=== PATIENT | female | born 1990 | race Caucasian/White ===

== ENCOUNTER 2022-05-11 15:07 | Emergency (ER) | payer OTHER, SELFPAY ==
[2022-05-11] VITALS (11 sets, daily range): BP systolic 102–119; BP diastolic 74–92; PULSE 63–82; RESP 11–20; TEMP 36.5; O2SAT 96–100
--- NOTE | ~2022-05-11 | CT_ITS ---
EXAMINATION: CT abdomen pelvis w con DATE: 05/11/2022 18:58 INDICATION: Epigastric abdominal pain and nausea TECHNIQUE: Computed tomography (CT) of the abdomen and pelvis was performed with 100 cc Omnipaque 300 intravenous contrast. The dose-length product was 240.85 mGy-cm. Automated exposure control and iter ative reconstruction technique were employed. COMPARISON: None. FINDINGS: Lung bases are unremarkable. Heart size normal. No significant pleural or pericardial effus ion. Small subcentimeter hypodensity right hepatic lobe, most likely benign cysts. The spleen, pancre as, adrenal glands and kidneys are unremarkable. Gallbladder is present. Stomach is unremarkable. Non obstructive bowel gas pattern. There are multiple fat-containing masses in the pelvis. There are at l east 6 separate masses, largest centered to the right measuring 6.2 x 4.7 cm greatest axial dimension . These contain macroscopic fat, consistent with teratoma/dermoids. There is mild mass effect on the adjacent colon. No acute osseous abnormality. IMPRESSION: 1. No acute abdominal abnormality. 2: Multiple masses of the pelvis bilaterally containing macroscopic fat, consistent with multiple te ratomas/dermoids. Recommend surgical consultation. Reviewed, dictated and finalized at location A. IMPRESSION: 1. No acute abdominal abnormality. 2: Multiple masses of the pelvis bilaterally containing macroscopic fat, consi stent with multiple teratomas/dermoids. Recommend surgical consultation.
[2022-05-11 16:54] LABS: Basophils Percent Auto 0.3 % (0.2-1.2); Eosinophils Percent Auto 0.4 % (0-4.4); Hematocrit 43.8 % (37.0-47.0); Hemoglobin 14.4 g/dL (12.0-15.0); Immature Granulocyte Absolute 0.03 K/mm3 (0.00-0.031); Immature Granulocyte Percent A 0.4 % (0-0.5); Lymphocytes Absolute Auto 1.08 K/mm3 (0.9-3.2); Lymphocytes Percent Auto 14.9 % (18.3-44.2); Mean Corpuscular HGB Conc 32.9 g/dl (32-36); Mean Corpuscular Hemoglobin 31.8 pg (26-34); Mean Corpuscular Volume 96.7 fl (80-100); Mean Platelet Volume 9.7 fl (7.4-10.4); Monocytes Absolute Auto 0.4 K/mm3 (0.1-0.6); Monocytes Percent Auto 5.8 % (2.6-8.5); Neutrophils Absolute Auto 5.7 K/mm3 (1.3-6.7); Neutrophils Percent Auto 78.2 % (45.5-73.1); Platelet Count Result 177 k/mm3 (150-375); Red Blood Count 4.53 M/mm3 (4.2-5.4); Red Cell Distribution Width 11.8 % (11.5-14.5); White Blood Count 7.3 K/mm3 (4.5-10.0)
[2022-05-11 16:57] LABS: Add Urine Microscopic? YES; Appearance Urine Slightly Cloudy (Clear); Bilirubin Urine Negative (Negative); Blood Urine 3+ (Negative); Color Urine Red (Yellow); Glucose Urine UA Negative (Negative); Ketones Urine Negative (Negative); Leukocyte Esterase Ur Trace LEU/UL (Negative); Nitrate Urine Negative (Negative); Protein Urine 1+ mg/dL (Negative); Urobilinogen Urine 0.2 mg/dL (<2.0); pH Urine 8.5 (5.0-9.0)
[2022-05-11 17:02] LABS: Alanine Aminotransferase 10 U/L (6-35); Albumin Level 4.6 g/dL (3.5-5.1); Alkaline Phosphatase 70 U/L (38-126); Anion Gap 6 mmol/L (8-16); Aspartate Amino Transferase 18 U/L (14-36); Bilirubin,Total 1.3 mg/dL (0.2-1.3); Blood Urea Nitrogen 8 mg/dL (7-17); Calcium 8.8 mg/dL (8.4-10.2); Carbon Dioxide 28 mmol/L (22-30); Chloride 103 mmol/L (98-107); Estimated CRCL calculation 89 ml/min; Estimated Glomerular Filt Rate > 60; Glucose 90 mg/dL (65-110); Lipase 42 U/L (23-300); Potassium 3.7 mmol/L (3.4-5.0); Sodium 137 mmol/L (137-145)
[2022-05-11 17:05] LABS: Mucus Urine Rare /lpf; RBC Urine >75 /hpf (0-2); Squamous Epithelial Cell Urine Moderate /hpf (Few); WBC Urine 0-3 /hpf
--- NOTE | 2022-05-11 18:25 | ED.ABDPAIN ---
HPI - Abdominal Pain General Chief Complaint: Abdominal Pain Stated Complaint: upper abd pain Time Seen by Provider: 05/11/22 17:34 Source: patient Mode of arrival: ambulatory Limitations: no limitations History of Present Illness HPI narrative: This is a 31-year-old female that presents to the emergency department for epigastric pain. Fairly constant since yesterday. The pain is burning in nature. Associated with some nausea. Denies fever or vomiting. Related Data Allergies Allergy/AdvReac Type Severity Reaction Status Date / Time No Known Allergies Allergy Verified 05/11/22 17:37 Review of Systems Review of Systems: CONSTITUTIONAL: Denies fever GASTROINTESTINAL: Reports abdominal pain, nausea. Denies vomiting, or diarrhea. GENITOURINARY: Denies dysuria or hematuria. All systems reviewed & are unremarkable except as noted in HPI and below PMFSH Past Medical History Medical History (Updated 05/11/22 @ 20:09 by Jania Navarro PA-C) No active medical problems Surgical History Surgical History (Updated 05/11/22 @ 18:26 by Jania Navarro PA-C) History of laparoscopy Social History Social History (Updated 05/11/22 @ 18:26 by Jania Navarro PA-C) Smoking status: Never smoker Alcohol intake: current Substance use: never Exam Narrative: GENERAL: Well-appearing, well-nourished, and in no acute distress. HEAD: Normocephalic, atraumatic. EYES: EOMI. CHEST: Clear to auscultation. No respiratory distress. No wheezes rales or rhonchi HEART: Regular rate and rhythm. No murmur heard. Normal peripheral pulses. ABDOMEN: Soft, nondistended, normal active bowel sounds. Tender to palpation in epigastrium, without guarding. No CVA tenderness EXTREMITIES: Normal range of motion. No edema. SKIN: Warm, dry, no rash. NEURO: No focal deficits. Alert and oriented x3. PSYCH: Normal mood and affect Course Consultations Consultation #1: Spoke with Dr. Washington about patient and workup. Will follow up in clinic. Would like CA-125 added on Date: 05/11/22 Time: 19:30 Vital Signs Vital signs: Vital Signs Temperature 97.7 F 05/11/22 15:25 Pulse Rate 78 05/11/22 15:25 Respiratory Rate 18 05/11/22 15:25 Blood Pressure 119/76 05/11/22 15:25 Pulse Oximetry 100 05/11/22 15:25 Oxygen Delivery Room Air 05/11/22 15:25 Temperature 97.7 F 05/11/22 15:25 Pulse Rate 77 05/11/22 20:23 Respiratory Rate 16 05/11/22 20:23 Blood Pressure 103/76 05/11/22 20:23 Pulse Oximetry 96 05/11/22 20:23 Oxygen Delivery Room Air 05/11/22 15:25 MDM - Abdominal Pain MDM Narrative Medical decision making narrative: Patient presents to the ER for epigastric pain present since yesterday. She is afebrile and nontoxic-appearing. Her vitals are stable. CBC and metabolic panel without concerning findings. Lipase is normal. UA without evidence of infection. Does show red blood cells. Patient does report she is currently on her menstrual cycle. Bedside test is negative. CT scan of the abdomen pelvis is without acute findings. Does show multiple masses of the pelvis bilaterally containing macroscopic fat, consistent with multiple teratomas/dermoid. Spoke with Dr. Washington about patient and workup. Will follow up in clinic. Would like CA-125 added on. Patient and family updated on case findings. She is stable and felt appropriate for further outpatient evaluation. She was given warnings to return to the ER Lab Data Attestation: I reviewed the patient's lab results. Result diagrams: 05/11/22 16:47 05/11/22 16:47 Labs: Lab Results 05/11/22 05/11/22 05/11/22 Range/Units 16:47 16:47 16:47 WBC 7.3 (4.5-10.0) K/mm3 RBC 4.53 (4.2-5.4) M/mm3 Hgb 14.4 (12.0-15.0) g/dL Hct 43.8 (37.0-47.0) % MCV 96.7 (80-100) fl MCH 31.8 (26-34) pg MCHC 32.9 (32-36) g/dl RDW 11.8 (11.5-14.5) % Plt Count 177 (150-375) k/mm3 MPV
[2022-05-11] MEDS: ONDANSETRON INJ 4 MG/2 ML VIAL IV PUSH (18:30)
[2022-05-11] MEDS: PANTOPRAZOLE SODIUM IV 40 MG VIAL IV PUSH (18:31)
[2022-05-15 02:48] LABS: CA-125 17 U/mL (<35)
== END 2022-05-11 20:35 | disposition home or self-care (01) ==
PROVIDERS: Emergency Medicine; Physician Assistant; Emergency Provider General Practice
DX: R10.13 Epigastric pain (principal); D48.7 Neoplasm of uncertain behavior of other specified sites
CPT/HCPCS: 36415; 74177; 80053; 81001; 81025; 83690; 85025; 86304; 96374; 96375; 99284; C9113; J0131; J2405; Q9967

== ENCOUNTER 2022-05-12 14:29 | Outpatient (CLI) | payer OTHER, SELFPAY ==
--- NOTE | ~2022-05-12 | US_ITS ---
EXAMINATION: US pelvic complete w TV DATE: 05/12/2022 15:38 INDICATION: Masses seen on recent CT examination. History of dermoids. Comparison:CT dated 05/11/2022 TECHNIQUE: Multiple transabdominal and endovaginal sonographic images of the pelvis performed. FINDINGS: The uterus measures 7.5 x 3.8 x 4.7 cm. The endometrial complex measures 4 mm. The right ovary measures 2 x 3.4 x 2 cm and the left ovary is not visualized. There are bilateral adn exal masses which are heterogeneous with dominant hyperechoic components, largest in the right adnexa measures 7.3 x 4.8 x 5.9 cm and a smaller measuring 3.1 x 2.8 x 2.5 cm. There is a left adnexal mass measuring 5.8 x 4.6 x 4.2 cm. These masses are compatible with dermoid/teratoma is as described on p rior CT examination. There is normal Doppler signal in the right ovary. There is no free fluid in the pelvis. There are no abnormal masses seen on either side. IMPRESSION: 1. Bilateral adnexal masses with dominant hyperechoic component and areas of shadowing, consistent wi th bilateral dermoids/teratomas as discussed on prior CT examination. Reviewed, dictated and finalized at location A. IMPRESSION: 1. Bilateral adnexal masses with dominant hyperechoic component and areas of sh adowing, consistent with bilateral dermoids/teratomas as discussed on prior CT examination.
== END 2022-05-12 14:30 | disposition home or self-care (01) ==
LOC: ANHIMG 14:32
PROVIDERS: Visit Provider Obstetrics & Gynecology
DX: N83.8 Other noninflammatory disorders of ovary, fallopian tube and broad ligament (principal); R19.00 Intra-abdominal and pelvic swelling, mass and lump, unspecified site
CPT/HCPCS: 76830; 76856

== ENCOUNTER → 2022-09-30 15:02 | Outpatient (CLI) | payer OTHER, SELFPAY ==
--- NOTE | ~2022-09-30 | US_ITS ---
EXAMINATION: US pelvic complete w TV DATE: 09/30/2022 15:33 INDICATION: Bilateral pelvic pain Comparison:05/12/2022 TECHNIQUE: Multiple transabdominal and endovaginal sonographic images of the pelvis performed. FINDINGS: The uterus measures 9.3 x 3.9 x 5.3 cm. The endometrial complex measures 7 mm. The there is a complex partially cystic right adnexal mass measuring 8.3 x 4.8 x 7 cm, likely ovarian . There is a thick internal septations and hypoechoic debris within the mass. Left ovary measures 3.1 x 2 x 1.9 cm. There is an echogenic focus within the left ovary measuring 1.3 x 0.6 x 0.7 cm. There is no free fluid in the pelvis. There are no abnormal masses seen on either side. IMPRESSION: 1. Large complicated solid and cystic mass of the right adnexa, likely ovarian measuring up to 8.3 cm . 2: Complicated mixed solid and cystic mass of the left ovary measuring up to 1.3 cm. Differential jamie gnosis includes complex functional cysts, cystadenoma, cystadenocarcinoma and residual dermoid. Recom mend correlation with MRI as clinically warranted. Reviewed, dictated and finalized at location A. ING MACHINE OPERATOR IMPRESSION: 1. Large complicated solid and cystic mass of the right adnexa, likely ovarian measuring up to 8.3 cm. 2: Complicated mixed solid and cystic mass of the left ovary measuring up to 1. 3 cm. Differential diagnosis includes complex functional cysts, cystadenoma, cy stadenocarcinoma and residual dermoid. Recommend correlation with MRI as clinic ally warranted.
== END ==
PROVIDERS: PCP Obstetrics & Gynecology; Visit Provider Obstetrics & Gynecology
DX: R10.2 Pelvic and perineal pain (principal); R19.03 Right lower quadrant abdominal swelling, mass and lump; R19.04 Left lower quadrant abdominal swelling, mass and lump
CPT/HCPCS: 76830; 76856

== ENCOUNTER 2022-10-03 14:10 | Outpatient (CLI) | payer OTHER, SELFPAY ==
[2022-10-06 01:14] LABS: CA-125 24 U/mL (<35)
== END 2022-10-03 14:11 | disposition home or self-care (01) ==
LOC: ANHLAB 14:11
PROVIDERS: PCP Obstetrics & Gynecology; Visit Provider Obstetrics & Gynecology
DX: N83.8 Other noninflammatory disorders of ovary, fallopian tube and broad ligament (principal)
CPT/HCPCS: 36415; 86304

== ENCOUNTER 2024-03-05 10:45 | Outpatient (CLI) | payer OTHER, SELFPAY ==
--- NOTE | ~2024-03-05 | US_ITS ---
Pelvic ultrasound. Clinical History: Enlarged left ovary Technique: Realtime transabdominal scanning of the pelvis was performed. Color flow Doppler and Doppl er spectral analysis were performed. Findings: The uterus is anteverted. The endometrial stripe has a thickness of 4 mm. No focal mass is identified. The right ovary measures 2.3 x 3.1 x 2.3 cm. No significant right ovarian or adnexal mass is seen. The left ovary measures 1.8 x 1.9 x 2.3 cm. No significant left ovarian or adnexal mass is seen. There is no evidence of free fluid in the cul de sac. Impression: Unremarkable pelvic ultrasound. Reviewed, dictated and finalized at location . Impression: Unremarkable pelvic ultrasound.
== END 2024-03-05 10:46 ==
LOC: MICIMG 10:48
DX: N83.9 Noninflammatory disorder of ovary, fallopian tube and broad ligament, unspecified (principal)
CPT/HCPCS: 76856

== ENCOUNTER 2024-10-07 11:00 | Outpatient (CLI) | payer OTHER, SELFPAY ==
--- NOTE | ~2024-10-07 | US_ITS ---
US breast RT limited 10/07/2024 11:30 Indication: Palpable right breast abnormality. Procedure: Limited right breast ultrasound Comparison: No prior studies for comparison. Findings: In the area of palpable concern at 10:00, 8 cm from the nipple there is a benign-appearing intramammary lymph node measuring 8 mm without evidence for significant cortical thickening. Impression: 1: Benign intramammary lymph node corresponds to the area of palpable concern. No evidence for malign arnulfo. BI-RADS CATEGORY 2 - BENIGN FINDINGS Reviewed, dictated and finalized at location B. ER STACKER DRIVER Impression: 1: Benign intramammary lymph node corresponds to the area of palpable concern. No evidence for malignancy. BI-RADS CATEGORY 2 - BENIGN FINDINGS
== END 2024-10-07 11:01 | disposition home or self-care (01) ==
DX: D36.0 Benign neoplasm of lymph nodes (principal); N63.15 Unspecified lump in the right breast, overlapping quadrants
CPT/HCPCS: 76642

== ENCOUNTER 2024-10-11 09:15 | Outpatient (CLI) | payer OTHER, SELFPAY ==
--- NOTE | ~2024-10-11 | US_ITS ---
EXAMINATION: US pelvic complete w TV DATE: 10/11/2024 10:16 INDICATION: Pelvic pain. TECHNIQUE: Multiple transabdominal and transvaginal sonographic images of the pelvis were obtained. COMPARISON: CT abdomen and pelvis 05/11/2022, pelvis ultrasound 03/05/24 FINDINGS: TRANSABDOMINAL ULTRASOUND: The uterus measures 8.7 x 3.2 x 4.3 cm. There is no free fluid in the pelvis. TRANSVAGINAL ULTRASOUND: The endometrial complex measures 5 mm in thickness. The right ovary measures 3.8 x 2.1 x 3.9 cm. In t he right ovary, there is a 2.0 cm hyperechoic mass. The left ovary measures 2.1 x 0.8 x 1.5 cm. There is normal vascular flow in the ovaries. IMPRESSION: 1. 2.0 cm hyperechoic mass in right ovary, likely a dermoid. Reviewed, dictated and finalized at location A. UNIT MANAGER
== END 2024-10-11 09:16 | disposition home or self-care (01) ==
DX: R10.2 Pelvic and perineal pain (principal); R93.5 Abnormal findings on diagnostic imaging of other abdominal regions, including retroperitoneum
CPT/HCPCS: 76830; 76856

== ENCOUNTER 2024-10-28 10:22 | Outpatient (CLI) | payer OTHER, SELFPAY ==
--- NOTE | ~2024-10-28 | US_ITS ---
EXAMINATION: US thyroid DATE: 10/28/2024 11:05 INDICATION: Personal history of Iain's thyroiditis TECHNIQUE: Multiple ultrasound images of the thyroid were obtained. COMPARISON: None. FINDINGS: The right thyroid lobe measures 5.4 x 1.2 x 1.8 cm. Within the upper pole of the right lobe of the thyroid gland is a 4.3 x 3.2 x 3.4 mm nodule: Composition - spongiform Echogenicity - hypoechoic Shape - wider than tall Margin - smooth Echogenic foci - none. = TR2 not suspicious. The left thyroid lobe measures 4.9 x 1.2 x 2.0 cm. The isthmus measures 0.39cm in anterior to posterior dimension. There is otherwise unremarkable echotexture and echogenicity throughout the remainder of the thyroid gland. No additional discrete nodules identified. Normal vascular flow is present. IMPRESSION: TR2 nodule in the right lobe of the thyroid gland measuring 4.3 mm in greatest dimension. This nodule is not sonographically suspicious and no FNA is recommended Follow-up may be performed. Reviewed, dictated and finalized at location A. RA REPAIRER
== END 2024-10-28 10:23 | disposition home or self-care (01) ==
PROVIDERS: Visit Provider Advanced Practice Midwife
DX: E04.1 Nontoxic single thyroid nodule (principal)
CPT/HCPCS: 76536

== ENCOUNTER 2024-12-25 18:09 | Emergency (ER) | payer OTHER, SELFPAY ==
--- NOTE | 2024-12-25 18:42 | ED.EXTPRO ---
HPI - Extremity Problem General Chief complaint: Extremity Problem,Nontraumatic <Jania Navarro PA-C - Last Filed: 12/26/24 10:25> Stated complaint: R leg pain without injury <Jania Navarro PA-C - Last Filed: 12/26/24 10:25> Time Seen by Provider: 12/25/24 18:42 <Jania Navarro PA-C - Last Filed: 12/26/24 10:25> Focused HPI: This is a 34 year old female that presents to the ER for leg pain. Reports recovering from the flu recently. Reports she has had low back pain over the last couple of days. Reports she is having stabbing pains in her pelvis. Reports she was having difficulty urinating. Now she is having pain in her right groin as well as numbness. Denies bowel or bladder incontinence. GENERAL: Well-appearing, well-nourished, and in no acute distress. HEAD: Normocephalic, atraumatic. CHEST: Clear to auscultation. ?No respiratory distress. HEART: Regular rate and rhythm.? NEURO: ?Alert and oriented x3. Patient screened in triage and initial orders placed.? ?Additional care and disposition to be based upon?diagnostic testing and treatment. <Jania Navarro PA-C - Last Filed: 12/26/24 10:25> History of Present Illness HPI Narrative: Agree with the HPI above. Would also like to add that patient has history of ovarian cysts on the right side although they are small an approximate 2 cm during last checkup, states that she has been doing some remodeling and have a living in the house and her symptoms are going on since after some remodeling. Denies any sharp pain or twisting injuries. Symptoms are associated with specific movements and she states she is having some difficulty urinating where she feels her muscles are spasming but not having any incontinence or dysuria. No fever chills. No midline back pain, no history of IV drug use, no history of spinal problems in the past. <Humberto Yoder MD - Last Filed: 12/26/24 02:36> Related Data Home medications: Home Medications ?Medication ?Instructions ?Recorded ?Confirmed ?Last Taken ?Type No Home Medications 05/12/22 11/28/24 Unknown History <Jania Navarro PA-C - Last Filed: 12/26/24 10:25> Allergies/Adverse reactions: Allergies Allergy/AdvReac Type Severity Reaction Status Date / Time No Known Allergies Allergy Verified 11/21/24 11:53 <Jania Navarro PA-C - Last Filed: 12/26/24 10:25> Review of Systems Review of Systems: As reviewed above in HPI <Humberto Yoder MD - Last Filed: 12/26/24 02:36> PMFSH Past Medical History Medical History: Medical History Hypothyroid History of miscarriage History of ovarian cyst No active medical problems <Jania Navarro PA-C - Last Filed: 12/26/24 10:25> Surgical History Surgical History: Surgical History S/P removal of ovarian cyst History of laparoscopy <Jania Navarro PA-C - Last Filed: 12/26/24 10:25> Family History Family History: Family History Other Heart disease <Jania Navarro PA-C - Last Filed: 12/26/24 10:25> Social History Social History: Social History Smoking status: Never smoker Alcohol intake: current Substance use: never <Jania Navarro PA-C - Last Filed: 12/26/24 10:25> Exam Narrative: GENERAL: [Well-appearing, well-nourished, and in no acute distress.] HEAD: [Normocephalic, atraumatic.] EYES: [PERRLA and EOMI.] ENT: Nares clear, no rhinorrhea or epistaxis. Mucous membranes moist. NECK: Supple. CHEST: [Clear to auscultation. No respiratory distress.] HEART: [Regular rate and rhythm]. No murmur heard. [Normal peripheral pulses.] ABDOMEN: [Soft, nondistended], [nontender], [No rigidity or guarding] EXTREMITIES: Normal range of motion. [No edema.] Able to hold extensor mechanism in bilateral lower extremities, EHL and FHL with 5/5 strength, hip and knee flexors 5/5 strength. Internal and external rotation of the hip elicits some pain in the lateral aspect of the proximal hip radiating into the groin. No anesthesia. Able to ambulate here in the emergency depart with any antalgic or ataxic gait SKIN: Warm, dry, no rash. NEURO: [No focal deficits]. Alert and oriented [x3.]. 5/5 strength in the major hip knee and ankle flexors and extensors, ambulation without any problems. Sensation grossly intact. No anesthesia in the groin. PSYCH: [Normal mood and affect.] <Humberto Yoder MD - Last Filed: 12/26/24 02:36> Course Vital Signs Vital signs: Vital Signs Temperature 98.3 F 12/25/24 18:53 Pulse Rate 65 12/25/24 18:53 Respiratory Rate 18 12/25/24 18:53 Blood Pressure 125/79 12/25/24 18:53 Pulse Oximetry 100 12/25/24 18:53 Oxygen Delivery Room Air 12/25/24 18:53 Temperature 98.2 F 12/25/24 19:06 Pulse Rate 64 12/26/24 01:17 Respiratory Rate 17 12/26/24 01:17 Blood Pressure 116/70 12/26/24 01:17 Pulse Oximetry 100 12/26/24 01:17 Oxygen Delivery Room Air 12/25/24 18:53 <Jania Navarro PA-C - Last Filed: 12/26/24 10:25> Vital Signs Temperature 98.3 F 12/25/24 18:53 Pulse Rate 65 12/25/24 18:53 Respiratory Rate 18 12/25/24 18:53 Blood Pressure 125/79 12/25/24 18:53 Pulse Oximetry 100 12/25/24 18:53 Oxygen Delivery Room Air 12/25/24 18:53 Temperature 98.2 F 12/25/24 19:06 Pulse Rate 64 12/26/24 01:17 Respiratory Rate 17 12/26/24 01:17 Blood Pressure 116/70 12/26/24 01:17 Pulse Oximetry 100 12/26/24 01:17 Oxygen Delivery Room Air 12/25/24 18:53 <Humberto Yoder MD - Last Filed: 12/26/24 02:36> MDM - Extremity (Nontraumatic) [facility] Narrative Medical decision making narrative: 34-year-old otherwise healthy female with history of right-sided ovarian cysts presents to the emergency depart with right-sided leg pain, groin pain and feeling some pelvic fullness. Denies any vaginal bleeding or discharge. States she is having some spasms in her back and right-sided hip muscles causing her to have some difficulties in the bathroom. No incontinence issues or saddle anesthesias. Describes pins and needle sensation going the back for right leg, recent viral illness. Denies any trauma but has been remodeling the house with multiple heavy objects and lifting over the past few days. She has normal vital signs, 2+ symmetric radial dorsalis pedis pulses. Unremarkable neurovascular assessment, pain is reproducible with palpation and flexion of the hip, internal external rotation of the hip. No red flag symptoms of cauda equina or conus medullaris based on clinical exam and history taking. Her PCP requested a CT scan. Suspicion presently is for musculoskeletal strain, iliopsoas muscle spasm, sacroiliitis, lumbago, sciatica, less likely intra-abdominal process such as a ovarian cyst causing her symptoms. Will obtain CT scan without contrast of her lumbar spine and abdomen pelvis with attention to the right side. Blood work was obtained as well as urinalysis and test. Patient politely declined any analgesia medications at this time. She has stable vital signs and will be monitored here in the emergency department. Bladder scan postvoid ordered. Lab showed no leukocytosis or anemia. Normal platelet count. Electrolytes within normal, normal kidney function, normal glucose and LFTs. Negative test, urinalysis without infection. CT scan of the abdomen pelvis shows no acute intra-abdominal pathology, no bowel obstruction or inflammation, normal appearing appendix. No hydronephrosis or calculus. She has a right-sided dermoid cyst of 4.1 cm in the adnexa. Lumbar spine shows no fractures or traumatic subluxation, no stenosis in the central canal or foramina. Patient was re-evaluated, doing well here in the emergency department. I informed her of her CT scan results and she states that she has had an issue with recurrent dermoid cysts and has had previous cyst surgeries. Most recent ultrasound last month shows a cyst size of 2.1 cm so this is acutely grown and could be causing her symptoms and feelings of pelvic fullness. She has a outpatient ultrasound scheduled with her OBGYN tomorrow. Patient was given strict return precautions and felt comfortable with discharge instructions at this time. <Jania Navarro PA-C - Last Filed: 12/26/24 10:25> 34-year-old otherwise healthy female with history of right-sided ovarian cysts presents to the emergency depart with right-sided leg pain, groin pain and feeling some pelvic fullness. Denies any vaginal bleeding or discharge. States she is having some spasms in her back and right-sided hip muscles causing her to have some difficulties in the bathroom. No incontinence issues or saddle anesthesias. Describes pins and needle sensation going the back for right leg, recent viral illness. Denies any trauma but has been remodeling the house with multiple heavy objects and lifting over the past few days. She has normal vital signs, 2+ symmetric radial dorsalis pedis pulses. Unremarkable neurovascular assessment, pain is reproducible with palpation and flexion of the hip, internal external rotation of the hip. No red flag symptoms of cauda equina or conus medullaris based on clinical exam and history taking. Her PCP requested a CT scan. Suspicion presently is for musculoskeletal strain, iliopsoas muscle spasm, sacroiliitis, lumbago, sciatica, less likely intra-abdominal process such as a ovarian cyst causing her symptoms. Will obtain CT scan without contrast of her lumbar spine and abdomen pelvis with attention to the right side. Blood work was obtained as well as urinalysis and test. Patient politely declined any analgesia medications at this time. She has stable vital signs and will be monitored here in the emergency department. Bladder scan postvoid ordered. Lab showed no leukocytosis or anemia. Normal platelet count. Electrolytes within normal, normal kidney function, normal glucose and LFTs. Negative test, urinalysis without infection. CT scan of the abdomen pelvis shows no acute intra-abdominal pathology, no bowel obstruction or inflammation, normal appearing appendix. No hydronephrosis or calculus. She has a right-sided dermoid cyst of 4.1 cm in the adnexa. Cervical spine shows no fractures or traumatic subluxation, no stenosis in the central canal or foramina. Patient was re-evaluated, doing well here in the emergency department. I informed her of her CT scan results and she states that she has had an issue with recurrent dermoid cysts and has had previous cyst surgeries. Most recent ultrasound last month shows a cyst size of 2.1 cm so this is acutely grown and could be causing her symptoms and feelings of pelvic fullness. She has a outpatient ultrasound scheduled with her OBGYN tomorrow. Patient was given strict return precautions and felt comfortable with discharge instructions at this time. <Humberto Yoder MD - Last Filed: 12/26/24 02:36> Lab Data Result diagrams: 12/25/24 23:10 12/25/24 23:10 <Jania Navarro PA-C - Last Filed: 12/26/24 10:25> Labs: Lab Results 12/25/24 12/25/24 12/25/24 Range/Units 18:55 23:09 23:10 WBC 7.3 (4.5-10.0) K/mm3 RBC 4.71 (4.2-5.4) M/mm3 Hgb 14.2 (12.0-15.0) g/dL Hct 42.4 (37.0-47.0) % MCV 90.0 (80-100) fl MCH 30.1 (26-34) pg MCHC 33.5 (32-36) g/dl RDW 12.0 (11.5-14.5) % Plt Count 241 (150-375) k/mm3 MPV 9.6 (7.4-10.4) fl Immature Gran % (Auto) 0.1 (0-0.5) % Neut % (Auto) 59.3 (45.5-73.1) % Lymph % (Auto) 33.3 (18.3-44.2) % [place] % (Auto) 5.6 (2.6-8.5) % Eos % (Auto) 1.1 (0-4.4) % Baso % (Auto) 0.6 (0.2-1.2) % Lymph # (Auto) 2.42 (0.9-3.2) K/mm3 [place] # (Auto) 0.4 (0.1-0.6) K/mm3 Eos # (Auto) 0.1 (0-0.3) K/mm3 Baso # (Auto) 0.0 (0.0-0.1) K/mm3 Abs Immat Gran (auto) 0.01 (0.00-0.031) K/mm3 Absolute Neuts (auto) 4.3 (1.3-6.7) K/mm3 Absolute Nucleated RBC 0.000 (0.0-0.012) K/mm3 Nucleated RBC % 0.0 (0.0-0.2) % Sodium 139 (137-145) mmol/L Potassium 3.8 (3.4-5.0) mmol/L Chloride 104 (98-107) mmol/L Carbon Dioxide 25 (22-30) mmol/L Anion Gap 10 (4-12) mmol/L BUN 20 H D (7-17) mg/dL Creatinine 0.60 L (0.7-1.0) mg/dL Estim Creat Clear Calc 96 ml/min Estimated GFR > 60 (59 - ) Glucose 108 (65-110) mg/dL Calcium 9.0 (8.4-10.2) mg/dL Total Bilirubin 0.6 (0.2-1.3) mg/dL AST 22 (14-36) U/L ALT 20 (6-35) U/L Alkaline Phosphatase 110 (38-126) U/L Total Protein 7.0 (6.3-8.2) g/dL Albumin 4.2 (3.5-5.1) g/dL Lipase 77 (23-300) U/L Serum HCG, Qual Negative Urine Color Yellow (Yellow) Urine Appearance Clear (Clear) Urine pH 8.5 (5.0-9.0) Ur Specific Carney 1.026 (1.001-1.035) Urine Protein Negative (Negative) mg/dL Urine Glucose (UA) Negative (Negative) mg/dL Urine Ketones Trace H (Negative) mg/dL Ur Blood (Man) Negative (Negative) Urine Nitrate Negative (Negative) Urine Bilirubin Negative (Negative) Urine Urobilinogen 1.0 (<2.0) mg/dL Leukocyte Esterase Rfl Negative (Negative) JG/UL <Jania Navarro PA-C - Last Filed: 12/26/24 10:25> Lab Results 0212/25/24 12/25/24 Range/Units 18:55 23:09 23:10 WBC 7.3 (4.5-10.0) K/mm3 RBC 4.71 (4.2-5.4) M/mm3 Hgb 14.2 (12.0-15.0) g/dL Hct 42.4 (37.0-47.0) % MCV 90.0 (80-100) fl MCH 30.1 (26-34) pg MCHC 33.5 (32-36) g/dl RDW 12.0 (11.5-14.5) % Plt Count 241 (150-375) k/mm3 MPV 9.6 (7.4-10.4) fl Immature Gran % (Auto) 0.1 (0-0.5) % Neut % (Auto) 59.3 (45.5-73.1) % Lymph % (Auto) 33.3 (18.3-44.2) % [place] % (Auto) 5.6 (2.6-8.5) % Eos % (Auto) 1.1 (0-4.4) % Baso % (Auto) 0.6 (0.2-1.2) % Lymph # (Auto) 2.42 (0.9-3.2) K/mm3 [place] # (Auto) 0.4 (0.1-0.6) K/mm3 Eos # (Auto) 0.1 (0-0.3) K/mm3 Baso # (Auto) 0.0 (0.0-0.1) K/mm3 Abs Immat Gran (auto) 0.01 (0.00-0.031) K/mm3 Absolute Neuts (auto) 4.3 (1.3-6.7) K/mm3 Absolute Nucleated RBC 0.000 (0.0-0.012) K/mm3 Nucleated RBC % 0.0 (0.0-0.2) % Sodium 139 (137-145) mmol/L Potassium 3.8 (3.4-5.0) mmol/L Chloride 104 (98-107) mmol/L Carbon Dioxide 25 (22-30) mmol/L Anion Gap 10 (4-12) mmol/L BUN 20 H D (7-17) mg/dL Creatinine 0.60 L (0.7-1.0) mg/dL Estim Creat Clear Calc 96 ml/min Estimated GFR > 60 (59 - ) Glucose 108 (65-110) mg/dL Calcium 9.0 (8.4-10.2) mg/dL Total Bilirubin 0.6 (0.2-1.3) mg/dL AST 22 (14-36) U/L ALT 20 (6-35) U/L Alkaline Phosphatase 110 (38-126) U/L Total Protein 7.0 (6.3-8.2) g/dL Albumin 4.2 (3.5-5.1) g/dL Lipase 77 (23-300) U/L Serum HCG, Qual Negative Urine Color Yellow (Yellow) Urine Appearance Clear (Clear) Urine pH 8.5 (5.0-9.0) Ur Specific Carney 1.026 (1.001-1.035) Urine Protein Negative (Negative) mg/dL Urine Glucose (UA) Negative (Negative) mg/dL Urine Ketones Trace H (Negative) mg/dL Ur Blood (Man) Negative (Negative) Urine Nitrate Negative (Negative) Urine Bilirubin Negative (Negative) Urine Urobilinogen 1.0 (<2.0) mg/dL Leukocyte Esterase Rfl Negative (Negative) JG/UL <Humberto Yoder MD - Last Filed: 12/26/24 02:36> Imaging Data Radiologist's impression: ITS Impressions Miscellaneous CT Procedure 12/26/24 07:50 IMPRESSION: 1. No acute abnormality of the abdomen, pelvis or lumbar spine. 2: Right adnexal dermoid cyst measuring 4.1 cm. <Jania Navarro PA-C - Last Filed: 12/26/24 10:25> Critical Care Time Critical Care Time Critical Care Time: No <SILVER Zhu Last Filed: 12/26/24 10:25> Discharge Plan Discharge Clinical Impression: Dermoid cyst of right ovary, Pelvic fullness, Acute right-sided back pain with sciatica <SILVER Zhu Last Filed: 12/26/24 10:25> Patient Disposition: Home, Self-Care <SILVER Zhu Last Filed: 12/26/24 10:25> Condition: Stable <Jania Navarro PA-C - Last Filed: 12/26/24 10:25> Instructions: Antibiotic Form, Ovarian Cyst (ED), Ovarian Cyst Removal (DC) <Jania Navarro PA-C - Last Filed: 12/26/24 10:25> Additional Instructions: You have a 4.1 cm dermoid cyst in your right adnexa which is increased in size from your previous scan. Follow-up with regular OBGYN tomorrow. The dermoid cyst could be causing her symptoms especially if it is impinging on some nervous structures near pelvis. No red flag signs or symptoms on your CT scan or examination today. Follow-up with your doctors, return with any new or worsening concerns. Return to the ER if you have increased pain in your back, you develop lower extremity weakness/numbness/paralysis, or you are unable to control your ability to urinate/stool. <Jania Navarro PA-C - Last Filed: 12/26/24 10:25> Patient Language: Georgian <Jania Navarro PA-C - Last Filed: 12/26/24 10:25> Prescriptions: No Action No Home Medications <Jania Navarro PA-C - Last Filed: 12/26/24 10:25> Follow-up/Referrals: UNKNOWN,DOCTOR [Primary Care Provider] - <Jania Navarro PA-C - Last Filed: 12/26/24 10:25> Time of Disposition: 02:36 <Jania Navarro PA-C - Last Filed: 12/26/24 10:25> 02:36 <Humberto Yoder MD - Last Filed: 12/26/24 02:36>
--- OUTSIDE RECORDS SUMMARY | 2024-12-25 18:50 | XMS_ITS | Clinical Summary ---
Author Organization [facility] Address [address] [place] [phone] Phone Care Team Providers Care Change Control Coordinator Name Role Phone Unavailable Primary Care Provider Unavailabl e Allergies Active Allergy Reactions Criticality Noted Date Comments Sulfa Antibiotics Unknown Medications multiple vitamin with minerals (CENTRUM) Tablet Act precious Active Problems No known active problems Immunizations Immunization Administration Dates Next Due Tetanus Toxoid, Unspecified Formulation 10/30/19 13 Social History Tobacco Use Types Packs/Day Years Used Date Smoking Tobacco: Never Smokeless Tobacco: Never Alcohol Use Standard Drinks/Week Comments Not Currently 0 (1 standard drink = 0.6 oz pur e alcohol) Comments No Sex and Gender Information Value Date Recorded Sex Assigned at Not on file Legal Sex Female 9:06 PM CDT Gender Identity Not on file Sexual Orientation Not on file Last Filed Vital Signs Vital Sign Reading Time Taken Comments Blood Pressure 116/76 10/01/2020 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 MANAGER Pulse 70 10/01/2020 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 MANAGER Temperature 37 C (98.6 F) 10/01/2020 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 MANAGER Respiratory Rate 20 10/01/2020 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 MANAGER Oxygen Saturation 98% 10/01/2020 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 MANAGER Inhaled Oxygen Concentration - - Weight 54.4 kg (120 lb) 10/01/2020 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 MANAGER Height 167.6 cm (5' 6 ) 10/01/2020 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 MANAGER Body Mass Index 19.37 10/01/2020 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 MANAGER Plan of Treatment Health Maintenance Due Date Last Done Comments Hepatitis C Virus (HCV) Screening 1989 TdaP Immunization 1989 Hepatitis B Immunization (1 of 3 - 19+ 3-dose series) 2008 Pap Smear 2010 Cervical Cancer Screening (CCS) 2019 HPV/Cotest 2019 Influenza Immunization (#1) 2024 SARS-COV-2 Immunization ( season) 2024 Respiratory Syncytial Virus (RSV) Immunization (Adult) (1 - 1-dose 75+ series) 2064 Meningococcal Immunization (ACWY) Aged Out No longer eligible based on patient's age to complete this topic Pneumococcal Immunization Combined Aged Out No longer eligible based on patient's age to complete this topic Rotavirus Immunization Aged Out No lo nger eligible based on patient's age to complete this topic
--- OUTSIDE RECORDS SUMMARY | 2024-12-25 18:50 | XMS_ITS | Referral Summary ---
Author Organization [facility] Address [facility] [facility] [address] Care Team Providers Care Mathematics Professor Name Role Phone Unavailable Primary Care Provider Unavailabl e Source Comments [facility],non-owned Affiliates and Associated Physician Practices is amultiple site organization consisting of ambulatory clinics and hospital sitesin [place], [place], [place] and [place]. This disclosure is being madepursuant to the Care Everywhere program and may not contain all information available regarding this patient. Last updated 18.[facility] Social History Tobacco Use Types Packs/Day Years Used Date Smoking Tobacco: Never Assessed Sex and Gender Information Value Date Recorded Sex Assigned at Not on file Gender Identity Not on file Sexual Orientation Not on file Plan of Treatment Not on file
--- OUTSIDE RECORDS SUMMARY | 2024-12-25 18:50 | XMS_ITS | Clinical Summary ---
Author Organization [facility] Address [facility] [facility] [place] [address] Care Team Providers Care Customer Service And Sales Consultant Name Role Phone Unavailable Primary Care Provider Unavailabl e Source Comments [facility],non-owned Affiliates and Associated Physician Practices is amultiple site organization consisting of ambulatory clinics and hospital sitesin [place], [place], [place] and [place]. This disclosure is being madepursuant to the Care Everywhere program and may not contain all information available regarding this patient. Last updated 18.[facility] Social History Tobacco Use Types Packs/Day Years Used Date Smoking Tobacco: Never Assessed Sex and Gender Information Value Date Recorded Sex Assigned at Not on file Gender Identity Not on file Sexual Orientation Not on file Plan of Treatment Health Maintenance Due Date Last Done Comments PAP SMEAR 1989 HIV SCREENING 2004 HEPATITIS C SCREENING 07/19/2007 DTAP/TDAP/TD VACCINES (1 - Tdap) 2008 HEPATITIS B VACCINE (1 of 3 - 19+ 3-dose series) 2008 COVID-19 VACCINE ( - 2023-2 5 season) 2024 INFLUENZA VACCINE (#1) 2024 DEPRESSION SCREENING 10/30/2024 ZOSTER VACCINE (1 of 2) 2039 HIB VACCINE Aged Out No longer eligi ble based on patient's age to complete this topic HPV VACCINE Aged Out No longer eligi ble based on patient's age to complete this topic MENINGOCOCCAL (Group B) VACCINE Aged Out No longer eligible based on patient's age to complete this topic MENINGOCOCCAL VACCINE Aged Out No elham ladan eligible based on patient's age to complete this topic PNEUMOCOCCAL VACCINE Aged Out No long er eligible based on patient's age to complete this topic
--- OUTSIDE RECORDS SUMMARY | 2024-12-25 18:50 | XMS_ITS | Patient Health Summary ---
Author Organization [facility] Address [address] [place] [address] Care Team Providers Care Cardiopulmonary Physical Therapist Name Role Phone Unavailable Primary Care Provider Unavailabl e Note from [facility],non-owned Affiliates and Associated Physician Practices is amultiple site organization consisting of ambulatory clinics and hospital sitesin [place], [place], [place] and [place]. This disclosure is being madepursuant to the Care Everywhere program and may not contain all information available regarding this patient. Last updated 18.[facility] Social History Tobacco Use Types Packs/Day Years Used Date Smoking Tobacco: Never Assessed Sex and Gender Information Value Date Recorded Sex Assigned at Not on file Gender Identity Not on file Sexual Orientation Not on file
--- OUTSIDE RECORDS SUMMARY | 2024-12-25 18:51 | XMS_ITS | Clinical Summary ---
Author Organization [facility] Address [address] [place] [address] Phone Care Team Providers Care Vacuum Metalizer Operator Name Role Phone Chanel Connor MD Primary Care Provider + Allergies No known active allergies Medications No known medications Active Problems Problem Noted Date Diagnosed Date Ovarian cyst, bilateral 06/01/2022 Social History Tobacco Use Types Packs/Day Years Used Date Smoking Tobacco: Never Smokeless Tobacco: Never Tobacco Cessation:Counseling Given: Not Answered Alcohol Use Standard Drinks/Week Comments Yes 0 (1 standard drink = 0.6 oz pur e alcohol) rare Comments No Sex and Gender Information Value Date Recorded Sex Assigned at Not on file Legal Sex Female 3:11 PM CDT Gender Identity Not on file Sexual Orientation Not on file Last Filed Vital Signs Vital Sign Reading Time Taken Comments Blood Pressure 118/66 10/17/2022 11:14 AM AIR BRAKE TESTER Pulse 68 10/17/2022 11:14 AM AIR BRAKE TESTER Temperature 37 C (98.6 F) 10/17/2022 11:14 AM AIR BRAKE TESTER Respiratory Rate 18 06/06/2022 4:07 PM CDT Oxygen Saturation 92% 10/17/2022 11:14 AM AIR BRAKE TESTER Inhaled Oxygen Concentration - - Weight 61.2 kg (135 lb) 10/17/2022 11:14 AM AIR BRAKE TESTER Height 165.1 cm (5' 5 ) 10/17/2022 11:14 AM AIR BRAKE TESTER Body Mass Index 22.47 10/17/2022 11:14 AM AIR BRAKE TESTER Plan of Treatment Health Maintenance Due Date Last Done Comments DTAP/TDAP/TD VACCINES (1 - Tdap) 2008 HEPATITIS B VACCINES (1 of 3 - 19+ 3-dose series) 2008 CERVICAL CANCER SCREENING 2019 INFLUENZA VACCINE (#1) 2024 HPV VACCINES Aged Out No longer eligi ble based on patient's age to complete this topic PNEUMOCOCCAL VACCINE 0-64 YEARS Aged Out No longer eligible based on patient's age to complete this topic Medical Devices Implanted Type Area Remote Sensing Surveyor Device Identifier Shelf Expiration Date Model / Serial / Lot Hemostatic Surgicel 4x8in 1952 - [id number] Implanted:Qty: 1 on 06/06/2022 by Sarai Marrufo DO at [facility] Hemostatic N/A: Pelvis [employer] 11/29/20261951 / / [id number] Insurance MEDI [employer] Commercial Advance Directives For more information, please contact: [phone] * Full Code (Latest Code Status on File) Date Activated Date Inactivated Comments 06/06/2022 7:35 AM 06/06/2022 6:24 PM Care Teams Vacuum Metalizer Operator Relationship Specialty Start Date End Date Chanel Connor MD [address] [place] [address] PCP - General Family Practice 05/27/22
[2024-12-25 18:53] VITALS: BP 125/79; PULSE 65; RESP 18; TEMP 36.8; O2SAT 100
[2024-12-25 19:03] LABS: Add Urine Microscopic? NO; Appearance Urine Clear (Clear); Bilirubin Urine Negative (Negative); Blood Urine Negative (Negative); Color Urine Yellow (Yellow); Glucose Urine UA Negative (Negative); Ketones Urine Trace mg/dL (Negative); Leukocyte Esterase Ur Negative LEU/UL (Negative); Nitrate Urine Negative (Negative); Protein Urine Negative (Negative); Specific Grav Ur 1.026 (1.001-1.035); pH Urine 8.5 (5.0-9.0)
[2024-12-25 19:06] VITALS: BP 104/72; PULSE 60; RESP 15; TEMP 36.8; O2SAT 99
[2024-12-25 21:35] VITALS: BP 128/80; PULSE 68; RESP 18; O2SAT 100
[2024-12-25 23:20] LABS: Basophils Percent Auto 0.6 % (0.2-1.2); Eosinophils Absolute Auto 0.1 K/mm3 (0-0.3); Eosinophils Percent Auto 1.1 % (0-4.4); Hematocrit 42.4 % (37.0-47.0); Hemoglobin 14.2 g/dL (12.0-15.0); Immature Granulocyte Absolute 0.01 K/mm3 (0.00-0.031); Immature Granulocyte Percent A 0.1 % (0-0.5); Lymphocytes Absolute Auto 2.42 K/mm3 (0.9-3.2); Lymphocytes Percent Auto 33.3 % (18.3-44.2); Mean Corpuscular HGB Conc 33.5 g/dl (32-36); Mean Corpuscular Hemoglobin 30.1 pg (26-34); Mean Platelet Volume 9.6 fl (7.4-10.4); Monocytes Absolute Auto 0.4 K/mm3 (0.1-0.6); Monocytes Percent Auto 5.6 % (2.6-8.5); Neutrophils Absolute Auto 4.3 K/mm3 (1.3-6.7); Neutrophils Percent Auto 59.3 % (45.5-73.1); Platelet Count Result 241 k/mm3 (150-375); Red Blood Count 4.71 M/mm3 (4.2-5.4); White Blood Count 7.3 K/mm3 (4.5-10.0)
--- OUTSIDE RECORDS SUMMARY | 2024-12-25 23:46 | XMS_ITS | Clinical Summary ---
Author Organization [facility] Address [address] [place] [address] Phone Care Team Providers Care Cork Slabs Sawyer Name Role Phone Chanel Connor MD Primary [...] Comments Blood Pressure 118/66 10/17/2022 11:14 AM POWER CLEANER OPERATOR Pulse 68 10/17/2022 11:14 AM POWER CLEANER OPERATOR Temperature 37 C (98.6 F) 10/17/2022 11:14 AM POWER CLEANER OPERATOR Respiratory Rate 18 06/06/2022 4:07 PM CDT Oxygen Saturation 92% 10/17/2022 11:14 AM POWER CLEANER OPERATOR Inhaled Oxygen Concentration - - Weight 61.2 kg (135 lb) 10/17/2022 11:14 AM POWER CLEANER OPERATOR Height 165.1 cm (5' 5 ) 10/17/2022 11:14 AM POWER CLEANER OPERATOR Body Mass Index 22.47 10/17/2022 11:14 AM POWER CLEANER OPERATOR Plan of Treatment Health Maintenance Due Date [...] this topic Medical Devices Implanted Type Area Balancing Machine Set Up Worker Device Identifier Shelf Expiration Date Model / Serial / Lot Hemostatic Surgicel 4x8in 1952 - [id number] Implanted:Qty: 1 on 06/06/2022 by Sarai Marrufo DO at [facility] Hemostatic N/A: Pelvis [employer] 11/29/[birth year]261952 / / [id number] Insurance MEDI SH[employer] Commercial Advance Directives For more information, please contact: [phone] * Full Code (Latest Code Status on File) Date Activated Date Inactivated Comments 06/06/2022 7:35 AM 06/06/2022 6:24 PM Care Teams Cork Slabs Sawyer Relationship Specialty Start Date End Date Chanel Connor MD [address] [place] [address] PCP - General Family Practice 05/27/22
--- OUTSIDE RECORDS SUMMARY | 2024-12-25 23:46 | XMS_ITS | Clinical Summary ---
Author Organization [facility] Address [address] [place] [phone] Phone Care Team Providers Care Demurrage Worker Name Role Phone Unavailable Primary Care Provider [...] Comments Blood Pressure 116/76 10/01/2020 5:05 PM DESIGN ANALYST Pulse 70 10/01/2020 5:05 PM DESIGN ANALYST Temperature 37 C (98.6 F) 10/01/2020 5:05 PM DESIGN ANALYST Respiratory Rate 20 10/01/2020 5:05 PM DESIGN ANALYST Oxygen Saturation 98% 10/01/2020 5:05 PM DESIGN ANALYST Inhaled Oxygen Concentration - - Weight 54.4 kg (120 lb) 10/01/2020 5:05 PM DESIGN ANALYST Height 167.6 cm (5' 6 ) 10/01/2020 5:05 PM DESIGN ANALYST Body Mass Index 19.37 10/01/2020 5:05 PM DESIGN ANALYST Plan of Treatment Health Maintenance Due Date [...]
--- OUTSIDE RECORDS SUMMARY | 2024-12-25 23:46 | XMS_ITS | Patient Health Summary ---
Author Organization [facility] Address [address] [place] [address] Care Team Providers Care Supervisor Stripping Name Role Phone Unavailable Primary Care Provider Unavailabl e Note from [facility],non-owned Affiliates and Associated Physician Practices is amultiple site organization consisting of ambulatory clinics and hospital sitesin [place], [place], [place] and [place]. This disclosure is being madepursuant to the Care Everywhere program and may not contain all information available regarding this patient. Last updated 18.[facility] Social History Tobacco Use Types Packs/Day Years Used Date Smoking Tobacco: Never Assessed Sex and Gender Information Value Date Recorded Sex Assigned at Not on file Gender Identity Not on file Sexual Orientation Not on file
--- OUTSIDE RECORDS SUMMARY | 2024-12-25 23:46 | XMS_ITS | Referral Summary ---
Author Organization [facility] Address [facility] [place] [address] Care Team Providers Care Shredder Tender Name Role Phone Unavailable Primary Care Provider Unavailabl e Source Comments [facility],non-owned Affiliates and Associated Physician Practices is amultiple site organization consisting of ambulatory clinics and hospital sitesin [place], [place], [place] and [place]. This disclosure is being madepursuant to the Care Everywhere program and may not contain all information available regarding this patient. Last updated 18.[facility] Social History Tobacco Use Types Packs/Day Years Used Date Smoking Tobacco: Never Assessed Sex and Gender Information Value Date Recorded Sex Assigned at Not on file Gender Identity Not on file Sexual Orientation Not on file Plan of Treatment Not on file
--- OUTSIDE RECORDS SUMMARY | 2024-12-25 23:46 | XMS_ITS | Clinical Summary ---
Author Organization [facility] Address [facility] [facility] [place] [address] Care Team Providers Care Note Keeper Name Role Phone Unavailable Primary Care Provider Unavailabl e Source Comments [facility],non-owned Affiliates and Associated Physician Practices is amultiple site organization consisting of ambulatory clinics and hospital sitesin [place], [place] and [place]. This disclosure is being madepursuant to the Care Everywhere program and may not contain all information available regarding this patient. Last updated 18.[facility] [employer] Social History Tobacco Use Types Packs/Day Years [...]
[2024-12-26 00:03] LABS: Alanine Aminotransferase 20 U/L (6-35); Albumin Level 4.2 g/dL (3.5-5.1); Alkaline Phosphatase 110 U/L (38-126); Anion Gap 10 mmol/L (4-12); Aspartate Amino Transferase 22 U/L (14-36); Bilirubin,Total 0.6 mg/dL (0.2-1.3); Blood Urea Nitrogen 20 mg/dL (7-17); Carbon Dioxide 25 mmol/L (22-30); Chloride 104 mmol/L (98-107); Estimated CRCL calculation 96 ml/min; Estimated Glomerular Filt Rate > 60; Glucose 108 mg/dL (65-110); Lipase 77 U/L (23-300); Potassium 3.8 mmol/L (3.4-5.0); Sodium 139 mmol/L (137-145)
--- NOTE | 2024-12-26 01:03 | PC.NURSE ---
Lab was called multiple times to add on serum preg test. security techLove diaz, asked pt to sign waiver form stating that she is not prior to having scan done.
[2024-12-26 01:13] LABS: SPREG INTERNAL CONTROL Positive; Serum Qual hCG Negative
[2024-12-26 01:17] VITALS: BP 116/70; PULSE 64; RESP 17; O2SAT 100
== END 2024-12-26 02:41 | disposition home or self-care (01) ==
PROVIDERS: Physician Assistant; Emergency Provider Student in an Organized Health Care Education/Training Program
DX: D27.0 Benign neoplasm of right ovary (principal); M54.41 Lumbago with sciatica, right side; E03.9 Hypothyroidism, unspecified
CPT/HCPCS: 36415; 72131; 74176; 80053; 81003; 83690; 84703; 85025; 99284

== ENCOUNTER 2024-12-26 10:23 | Outpatient (CLI) | payer SELFPAY | END 2024-12-26 10:24 | disposition home or self-care (01) | PROVIDERS: PCP Obstetrics & Gynecology; Visit Provider Obstetrics & Gynecology | DX: D36.9 Benign neoplasm, unspecified site (principal) | CPT/HCPCS: 76830; 76856 ==

== ENCOUNTER 2025-02-27 16:13 | Outpatient (CLI) | payer OTHER, SELFPAY ==
--- OUTSIDE RECORDS SUMMARY | 2025-02-26 16:43 | XMS_ITS | Clinical Summary ---
Author Organization [facility] Address [address] [place] [address] Phone Care Team Providers Care Diamond Die Polisher Name Role Phone Chanel Connor MD Primary Care Provider + Allergies Active Allergy Reactions Criticality Noted Date Comments Sulfa (Sulfonamide Antibiotics) Unknown 12/29 Reaction: Unknown, Medications NUTRITIONAL SUPPLEMENTS ORAL Take by mouth. Active Active Problems Problem Noted Date Diagnosed Date Ovarian cyst, bilateral 06/01/2022 Encounters Date Type Department Care Team Description 02/25/2025 Telephone [facility] Gynecologic Oncology [place] [address] [place] [address] Sarai Marrufo DO Question (Fax of US order) 02/17/2025 Telephone [facility] [place] [address] [place] [address] Sarai Marrufo DO Appointment Correction 02/11/2025 External Device Data STL ABSTRACTION Provider, Abstract 01/21/2025 External Device Data [place] ABSTRACTION Provider, Abstract 01/21/2025 External Device Data [place] ABSTRACTION Provider, Abstract 01/21/2025 External Device Data STL ABSTRACTION Provider, Abstract 01/16/2025 10:30 AM CDT Office Visit [facility] [place] [address] [place] [address] Sarai Marrufo DO Pelvic mass (Primary Dx) from Last 3 Months Social History Tobacco Use Types Packs/Day Years Used Date Smoking Tobacco: Never Smokeless Tobacco: Never Tobacco Cessation:Counseling Given: Not Answered Alcohol Use Standard Drinks/Week Comments Yes 0 (1 standard drink = 0.6 oz pur e alcohol) rare Feeling Safe Answer Date Recorded Are you in a relationship wi th someone who hurts you emotionally and/or physically? No 01/16/2025 Comments No Sex and Gender Information Value Date Recorded Sex Assigned at Not on file Legal Sex Female 3:11 PM CDT Gender Identity Not on file Sexual Orientation Not on file Last Filed Vital Signs Vital Sign Reading Time Taken Comments Blood Pressure 100/62 01/16/2025 10:33 AM CDT Pulse 78 01/16/2025 10:33 AM CDT Temperature 36.6 C (97.9 F) 01/16/2025 10:33 AM CDT Respiratory Rate 18 06/06/2022 4:07 PM CDT Oxygen Saturation 93% 01/16/2025 10:33 AM CDT Inhaled Oxygen Concentration - - Weight 56.2 kg (124 lb) 01/16/2025 10:33 AM CDT Height 165.1 cm (5' 5 ) 01/16/2025 10:33 AM CDT Body Mass Index 20.63 01/16/2025 10:33 AM CDT Plan of Treatment Upcoming Encounters Date Type Department Care Team (Late st Contact Info) Description 03/04/2025 9:00 AM CDT Office Visit [facility]necologic [facility] [place] [address] [facility] [address] [place] [address] Sarai Marrufo, DO [address] [facility] [address] [place] [address] Health Maintenance Due Date Last Done Comments DTAP/TDAP/TD VACCINES (1 - Tdap) 2008 HEPATITIS B VACCINES (1 of 3 - 19+ 3-dose series) 2008 HPV/Cotest (21-29) 2010 CERVICAL CANCER SCREENING 2019 HPV/Cotest (30-65) 2019 PAP SMEAR 2019 INFLUENZA VACCINE (#1) 2024 HPV VACCINES Aged Out No longer eligi ble based on patient's age to complete this topic Medical Devices Implanted Type Area Accounts Payable Payroll Coordinator Device Identifier Shelf Expiration Date Model / Serial / Lot Hemostatic Surgicel 4x8in 1952 [id number] Implanted:Qty: 1 on 06/06/2022 by Sarai Marrufo DO at [facility] Hemostatic N/A: Pelvis [employer] 11/29/[birth year]261952 / / [id number] Insurance [facility] SHARE RX [employer] Commercial Advance Directives For more information, please contact: [phone] * Full Code (Latest Code Status on File) Date Activated Date Inactivated Comments 06/06/2022 7:35 AM 06/06/2022 6:24 PM Care Teams Diamond Die Polisher Relationship Specialty Start Date End Date Chanel Connor MD [address] [place] [phone] PCP - General Family Practice 05/27/22
--- OUTSIDE RECORDS SUMMARY | 2025-02-26 16:43 | XMS_ITS | Clinical Summary ---
Author Organization [facility] Address [facility] [facility] [place] [address] Care Team Providers Care Planner Scheduler Name Role Phone Unavailable Primary Care Provider Unavailabl e Source Comments [facility],non-owned Affiliates and Associated Physician Practices is amultiple site organization consisting of ambulatory clinics and hospital sitesin [place], [place], [place] and [place]. This disclosure is being madepursuant to the Care Everywhere program and may not contain all information available regarding this patient. Last updated 18.[facility] [employer] Social History Tobacco Use Types Packs/Day Years Used Date Smoking Tobacco: Never Assessed Comments Unknown Sex and Gender Information Value Date Recorded Sex Assigned at Not on file Legal Sex Female 1:17 PM CDT Gender Identity Not on file Sexual Orientation Not on file Plan of Treatment Health Maintenance Due Date Last Done Comments PAP SMEAR 1989 HIV SCREENING 2004 HEPATITIS C SCREENING 07/19/2007 DTAP/TDAP/TD VACCINES (1 - Tdap) 2008 HEPATITIS B VACCINE (1 of 3 - 19+ 3-dose series) 2008 COVID-19 VACCINE ( - 2023-2 5 season) 2024 DEPRESSION SCREENING 10/30/2024 INFLUENZA VACCINE (Season Ended) 2025 ZOSTER VACCINE (1 of 2) 2039 HIB VACCINE Aged Out No longer eligi ble based on patient's age to complete this topic HPV VACCINE Aged Out No longer eligi ble based on patient's age to complete this topic MENINGOCOCCAL (Group B) VACC INE SHARED DECISION-MAKING Aged Out No longer eligibl e based on patient's age to complete this topic MENINGOCOCCAL GROUPS A/C/Y/W VACCINE Aged Out No longer eligible b ased on patient's age to complete this topic PNEUMOCOCCAL VACCINE Aged Out No long er eligible based on patient's age to complete this topic
--- OUTSIDE RECORDS SUMMARY | 2025-02-26 16:43 | XMS_ITS | Clinical Summary ---
Author Organization [facility] Address [address] [place] [address] Phone Care Team Providers Care Roller Repairer Name Role Phone Unavailable Primary Care Provider [...] Comments Blood Pressure 116/76 10/01/2020 5:05 PM KETTLE CHIPPER Pulse 70 10/01/2020 5:05 PM KETTLE CHIPPER Temperature 37 C (98.6 F) 10/01/2020 5:05 PM KETTLE CHIPPER Respiratory Rate 20 10/01/2020 5:05 PM KETTLE CHIPPER Oxygen Saturation 98% 10/01/2020 5:05 PM KETTLE CHIPPER Inhaled Oxygen Concentration - - Weight 54.4 kg (120 lb) 10/01/2020 5:05 PM KETTLE CHIPPER Height 167.6 cm (5' 6 ) 10/01/2020 5:05 PM KETTLE CHIPPER Body Mass Index 19.37 10/01/2020 5:05 PM KETTLE CHIPPER Plan of Treatment Health Maintenance Due Date [...]
--- OUTSIDE RECORDS SUMMARY | 2025-02-26 16:43 | XMS_ITS | Encounter Summary ---
Author Organization [facility] Address [address] [place] [address] Care Team Providers Care Hogshead Weigher Name Role Phone Chanel Connor MD Primary Care Provider + Reason for Visit * Reason Onset Date Comments Question 02/25/2025 Fax of US order Encounter Details Date Type Department Care Team (Late st Contact Info) Description 02/25/2025 Telephone [facility] Gynecologic Oncology [place] [address] [address] [place] [address] Sarai Marrufo, [address] [place] [address] Question (Fax of US order) Social History Tobacco Use Types Packs/Day Years Used Date Smoking Tobacco: Never Smokeless Tobacco: Never Alcohol Use Standard Drinks/Week Comments Yes 0 [...] on file Sexual Orientation Not on file documented as of this encounter Miscellaneous Notes * Telephone Encounter - Simona Alexander RN - 02/25/2025 11:55 AM CDT Call from patient concerning US appointment. Patient scheduled at [facility] close to home. Requested that US order be faxed before appointment tomorrow. Fax sent. No additional questions at this time. documented in this encounter Plan of Treatment Upcoming Encounters Date Type Department Care Team (Late st Contact Info) Description 03/04/2025 9:00 AM CDT Office Visit [facility] Gynecologic Oncology [place] [address] [facility] [address] [address] [place] [address] Sarai Marrufo DO [address] [place] [address] documented as of this encounter Visit Diagnoses Not on filedocumented in this encounter Care Teams Hogshead Weigher Relationship Specialty Start Date End Date Chanel Connor MD [address] [place] [phone] PCP - General Family Practice 05/27/22 documented as of this encounter
--- NOTE | ~2025-02-27 | US_ITS ---
EXAMINATION: US transvaginal INDICATION: Pelvic mass Comparison: Comparison to multiple prior studies sequentially, with oldest reviewed study dated 11/2021. TECHNIQUE: Multiple endovaginal sonographic images of the pelvis performed. FINDINGS: The uterus measures 9.1 x 3 x 6.2 cm. The endometrial complex measures 9 mm. The right ovary measures 4.4 x 4 x 4.6 cm and the left ovary measures 3.2 x 2.5 x 2.2 cm. There is a 2 cm left ovarian cyst. There is a complex predominantly hyperechoic solid 4.6 cm right ovarian mass with internal cystic changes, consistent with known dermoid. This has diminished in size compared wit h prior studies dated back to 09/30/2022 when it measured 8.3 x 4.8 x 7 cm. There are small follicles in each ovary. Normal doppler signal in both ovaries. There is no free fluid in the pelvis. There are no abnormal masses seen on either side. IMPRESSION: 1. Diminished size of now hyperechoic solid mass of the right ovary measuring 4.6 cm, compatible with known dermoid. 2: Left ovarian cyst measuring 2 cm. Reviewed, dictated and finalized at location A. IMPRESSION: 1. Diminished size of now hyperechoic solid mass of the right ovary measuring 4 .6 cm, compatible with known dermoid. 2: Left ovarian cyst measuring 2 cm.
--- OUTSIDE RECORDS SUMMARY | 2025-02-27 16:21 | XMS_ITS | Clinical Summary ---
Author Organization [facility] Address [facility] [facility] [place] [address] Care Team Providers Care Rn Cvicu Name Role Phone Unavailable Primary Care Provider Unavailabl e Source Comments [facility],non-owned Affiliates and Associated Physician Practices is amultiple site organization consisting of ambulatory clinics and hospital sitesin [place], [place], [place] and [place]. This disclosure is being madepursuant to the Care Everywhere program and may not contain all information available regarding this patient. Last updated 18.[facility] [employer] Social History Tobacco Use Types Packs/Day Years [...]
--- OUTSIDE RECORDS SUMMARY | 2025-02-27 16:21 | XMS_ITS | Clinical Summary ---
Author Organization [facility] Address [address] [address] Phone Care Team Providers Care Telephone Switchboard Operator Name Role Phone Chanel Connor MD Primary Care Provider + Allergies Active Allergy Reactions Criticality Noted Date Comments Sulfa (Sulfonamide Antibiotics) Unknown 12/29 Reaction: Unknown, Medications NUTRITIONAL SUPPLEMENTS ORAL Take by mouth. Active Active Problems Problem Noted Date Diagnosed Date Ovarian cyst, bilateral 06/01/2022 Encounters Date Type Department Care Team Description 02/25/2025 Telephone [facility] Gynecologic Oncology [place] [address] [place] [address] Sarai Marrufo DO Question (Fax of US order) 02/17/2025 Telephone [facility] Gynecologic Oncology [place] [address] [facility] [address] [place] [address] Sarai Marrufo DO Appointment Correction 02/11/2025 External Device Data STL ABSTRACTION Provider, Abstract 01/21/2025 External Device Data STL ABSTRACTION Provider, Abstract 01/21/2025 External Device Data STL ABSTRACTION Provider, Abstract 01/21/2025 External Device Data STL ABSTRACTION Provider, Abstract 01/16/2025 10:30 AM CDT Office Visit [facility] Gynecologic Oncology [place] [address] [facility] [address] [place] [address] Sarai Marrufo DO Pelvic mass [...] Description 03/04/2025 9:00 AM CDT Office Visit [facility] Gynecologic Oncology [place] [address] [facility] [facility] [address] [place] [address] Sarai Marrufo, DO [address] [facility] [address] [place] [address] Health Maintenance Due Date Last [...] this topic Medical Devices Implanted Type Area Personnel Assistant Device Identifier Shelf Expiration Date Model / Serial / Lot Hemostatic Surgicel 4x8in 1952 [id number] Implanted:Qty: 1 on 06/06/2022 by Sarai Marrufo DO at [facility] Hemostatic N/A: Pelvis [employer] 11/29/20261951 / / [id number] Insurance [facility] SHARE RX [employer] Commercial Advance Directives For more information, please contact: [phone] * Full Code (Latest Code Status on File) Date Activated Date Inactivated Comments 06/06/2022 7:35 AM 06/06/2022 6:24 PM Care Teams Telephone Switchboard Operator Relationship Specialty Start Date End Date Chanel Connor MD [address] [place] [phone] PCP - General Family Practice 05/27/22
--- OUTSIDE RECORDS SUMMARY | 2025-02-27 16:21 | XMS_ITS | Clinical Summary ---
Author Organization [facility] Address [address] [place] [address] Phone Care Team Providers Care Impact Retail Service Merchandiser Name Role Phone Unavailable Primary Care Provider [...] Comments Blood Pressure 116/76 10/01/2020 5:05 PM LEAD DATABASE DEVELOPER Pulse 70 10/01/2020 5:05 PM LEAD DATABASE DEVELOPER Temperature 37 C (98.6 F) 10/01/2020 5:05 PM LEAD DATABASE DEVELOPER Respiratory Rate 20 10/01/2020 5:05 PM LEAD DATABASE DEVELOPER Oxygen Saturation 98% 10/01/2020 5:05 PM LEAD DATABASE DEVELOPER Inhaled Oxygen Concentration - - Weight 54.4 kg (120 lb) 10/01/2020 5:05 PM LEAD DATABASE DEVELOPER Height 167.6 cm (5' 6 ) 10/01/2020 5:05 PM LEAD DATABASE DEVELOPER Body Mass Index 19.37 10/01/2020 5:05 PM LEAD DATABASE DEVELOPER Plan of Treatment Health Maintenance Due Date Last Done Comments Hepatitis C Virus (HCV) Screening 1989 TdaP Immunization 1989 Hepatitis B Immunization (1 of 3 - 19+ 3-dose series) 2008 SARS-COV-2 Immunization ( - 2023- season) 2024 Influenza Immunization (Seas on Ended) 2025 Respiratory Syncytial Virus (RSV) Immunization (Adult) (1 - 1-dose 75+ series) 2064 Human Papillomavirus (HPV) Immunization Aged Out No longer eligible b ased on patient's age to complete this topic Meningococcal Immunization (ACWY) Aged Out No longer eligible based on patient's age to complete this topic Pneumococcal Immunization Combined Aged Out No longer eligible based on patient's age to complete this topic Rotavirus Immunization Aged Out No lo nger eligible based on patient's age to complete this topic
== END 2025-02-27 16:14 | disposition home or self-care (01) ==
PROVIDERS: PCP Obstetrics & Gynecology
DX: N83.9 Noninflammatory disorder of ovary, fallopian tube and broad ligament, unspecified (principal); N83.202 Unspecified ovarian cyst, left side
CPT/HCPCS: 76830